=== PATIENT | female | born 1950 | race Caucasian/White ===

== ENCOUNTER 2021-05-16 14:13 | Emergency (ER) | payer BC ==
[~2021-05-16] VITALS: Ht 172.7 cm; Wt 62.1 kg
--- NOTE | 2021-05-16 14:16 | NUR ---
SENT TO ER BED 14. [id number]/PD, WAS AT A CLOSED GARAGE W/ CAR IDLING WHILE ON ZOOM CALL W/ DEPRESSION SUPPORT GROUP. ASK IF SHE SUICIDAL STATES "I GUESS" PER REPORT. [employer] AT BEDSIDE PT WAS ASKED IF SHE HAS THOUGHTS OF HURTING HERSELF OR OTHER SHE DENIED THEM BUT STATED THAT SHE MAY HAD INTENTIONS OF ATTEMPTING TO TAKE HER LIFE WHILE HER CAR WAS ISILING. DR MARES AT BEDSIDE.
--- NOTE | 2021-05-16 14:17 | NUR ---
1:1 SITTER AT BEDSIDE
--- NOTE | 2021-05-16 14:41 | NUR ---
LAB AT BEDSIDE
--- NOTE | 2021-05-16 14:51 | NUR ---
Beatriz rudd in [facility] - 05/16/21 at 1509 by [facility] URINE TEST COLLECTED AND SENT
--- NOTE | 2021-05-16 14:51 | NUR ---
COVID TEST COLLECTED AND SENT
--- NOTE | 2021-05-16 14:51 | NUR ---
URINE SAMPLE COLLECTED AND SNET
[2021-05-16 14:59] LABS: BASOPHILS % (AUTO) 0.5 % (0.0-2.0); EOSINOPHILS % (AUTO) 1.4 % (0.0-6.0); HEMATOCRIT 43 % (33-45); HEMOGLOBIN 14.1 g/dL (11.5-14.8); LYMPHOCYTES # (AUTO) 1.4 K/uL (0.8-4.8); LYMPHOCYTES % (AUTO) 23.9 % (20.0-44.0); MEAN CORPUSCULAR HGB CONC 33 g/dl (31.0-36.0); MEAN CORPUSCULAR VOLUME 90 fL (82-100); MONOCYTES # (AUTO) 0.6 K/uL (0.1-1.30); MONOCYTES % (AUTO) 9.3 % (2.0-12.0); NEUTROPHILS # (AUTO) 3.9 K/uL (1.8-8.9); NEUTROPHILS % (AUTO) 64.9 % (43.0-81.0); PLATELET COUNT (AUTO) 206 K/uL (150-450); RED BLOOD CELL COUNT(AUTO) 4.73 MIL/uL (4.0-5.2)
[2021-05-16 15:11] LABS: BILIRUBIN,URINE NEGATIVE (NEGATIVE); COLOR,URINE YELLOW (YELLOW); LEUKOCYTE ESTERASE ,URINE NEGATIVE (NEGATIVE); NITRITE, URINE NEGATIVE (NEGATIVE); PH,URINE 6.5 (5.0-8.0); PROTEIN,URINE NEGATIVE (NEGATIVE); UGLUCOSE NEGATIVE (NEGATIVE); UROBILINOGEN,URINE 0.2 EU/dL (0.2)
[2021-05-16 15:15] LABS: ALANINE AMINOTRANSFERASE 98 U/L (12-78); ALBUMIN 4.2 g/dL (3.4-5.0); ALCOHOL, BLOOD < 3 mg/dL (0-0); ALKALINE PHOSPHATASE 84 U/L (46-116); ASPARTATE AMINOTRANSFERASE 33 U/L (15-37); BILIRUBIN,DIRECT 0.1 mg/dL (0.0-0.2); BILIRUBIN,TOTAL 0.2 mg/dL (0.2-1.0); CALCIUM, SERUM 9.3 mg/dL (8.5-10.1); CARBON DIOXIDE 33 mmol/L (21-32); CHLORIDE 102 mmol/L (98-107); CREATININE 0.7 mg/dL (0.6-1.3); GLUCOSE 116 mg/dL (74-106); POTASSIUM 3.7 mmol/L (3.5-5.1); SODIUM SERUM 140 mmol/L (136-145); UREA NITROGEN, BLOOD 28 mg/dL (7-18)
[2021-05-16 15:16] LABS: ACETAMINOPHEN 0 ug/ml (10-30)
[2021-05-16 15:40] LABS: WBC,URINE 0-2 /HPF (0-3)
[2021-05-16 15:41] LABS: BACTERIA,URINE None seen /HPF (None Seen); SQUAMOUS EPITHELIAL CELL,UR Rare /HPF (None Seen)
--- NOTE | 2021-05-16 17:24 | NUR ---
CINDY GUTIERREZ, [employer] REPAIR, AND WAS NOTIFIED OF PT STATUS.
--- NOTE | 2021-05-16 19:48 | NUR ---
YELLOW HEART EARRINGS GIVEN TO , PER PT REQUEST
--- NOTE | 2021-05-16 20:10 | NUR ---
GIVEN AUTHORIZATIO TO ADMIT TO PSYCH.
--- NOTE | 2021-05-16 21:52 | NUR ---
P[employer]- [employer] AT BEDSIDE FOR EVAL.
--- NOTE | 2021-05-16 22:04 | NUR ---
Patient discharged to home in stable condition. Written and verbal after care instructions given. Patient verbalizes understanding of instruction.
[2021-05-16 22:05] VITALS: BP 141/80
[2021-05-17 14:08] LABS: ABG PCO2 43.4 mmHg (35.0-45.0); ABG PH 7.411 (7.350-7.450); ABG PO2 79.6 mmHg (75.0-100.0); COHb 2.2 % (0.5-1.5); MetHb 0.1 % (0.0-1.5); O2Hb 93.3 % (94.0-97.0); SITE, ABG Right Radial; VENT MODE, BG room air
== END 2021-05-16 22:06 | disposition home or self-care (01) ==
LOC: ER 14:17
DX: R45.851 Suicidal ideations (principal); F32.A Depression, unspecified; R03.0 Elevated blood-pressure reading, without diagnosis of hypertension; T58.02XA Toxic effect of carbon monoxide from motor vehicle exhaust, intentional self-harm, initial encounter; Y92.015 Private garage of single-family (private) house as the place of occurrence of the external cause; Z53.20 Procedure and treatment not carried out because of patient's decision for unspecified reasons
CPT/HCPCS: 36415; 36600; 80048; 80076; 80143; 80307; 80320; 81001; 82803; 85025; 87426; 99285; C9803; G0480